=== PATIENT | female | born 1990 | race Caucasian/White ===

== ENCOUNTER 2018-06-15 22:08 | Emergency (ER) | payer OTHER ==
--- NOTE | 2018-06-15 22:55 | ED Physician Documentation ---
PD HPI FEMALE - Stated complaint Stated Complaint: FEMALE /6WK OB - Chief complaint Chief Complaint: Abd Pain - History obtained from History obtained from: Patient - History of Present Illness Timing - onset: How many days ago (4) Timing - details: Gradual onset, Intermittant Pain level max: 2 Associated symptoms: Pelvic pain, Vaginal bleeding. 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 vaginal bleeding x 4 days which has decreased but still vagina, spotting Review of Systems Constitutional: reports: Reviewed and negative GI: reports: Reviewed and negative : reports: Vaginal bleeding, Now EGA (6 weeks). denies: Dysuria, Frequency PD PAST MEDICAL HISTORY - Past Medical History Past Medical History: No - Past Surgical History Past Surgical History: No - Present Medications Home Medications: Ambulatory Orders Medication Instructions Recorded Confirmed Pnv95/Ferrous Fumarate/FA 1 tab PO 06/15/18 [ Tablet] - Allergies Allergies/Adverse Reactions: Allergies Allergy/AdvReac Type Severity Reaction Status Date / Time No Known Drug Allergies Allergy Verified 06/15/18 22:16 - Living Situation Living Situation: reports: With spouse/s.o. Living Arrangement: reports: At home PD ED PE NORMAL - Vitals Vital signs reviewed: Yes - General General: Alert and oriented X 3, No acute distress, Well developed/nourished - Cardiac Cardiac: RRR, No murmur - Respiratory Respiratory: No respiratory distress, Clear bilaterally - Abdomen Abdomen: Soft, Non tender, Non distended - Back Back: No CVA TTP Results - Vitals Vitals: Vital Signs - 24 hr 06/15/18 06/16/18 22:11 02:03 Temperature 36.2 C L Heart Rate 91 83 Respiratory 18 14 Rate Blood Pressure 129/62 112/75 O2 Saturation 99 100 Oxygen O2 Source Room air - Labs Labs: Laboratory Tests 06/15/18 23:10 HCG, Quant 42971.00 - Rads (name of study) pelvic US Radiology: Prelim report reviewed, See rad report PD MEDICAL DECISION MAKING - ED course Complexity details: reviewed results, re-evaluated patient, considered differential, d/w patient, d/w family Departure - Departure Disposition: 01 Home, Self Care Clinical Impression: Threatened miscarriage Condition: Good Instructions: ED Miscarriage Poss Follow-Up: [facility] [Provider Group] Discharge Date/Time: 06/16/18 02:56
--- NOTE | 2018-06-16 01:57 | Ultrasound Report ---
Reason: , vaginal bleeding/cramping Procedure Date: 06/16/2018 Accession Number: [id number] / [id number] Procedure: US - OB Transvaginal CPT Code: FULL RESULT: EXAM: FIRST TRIMESTER OBSTETRIC ULTRASOUND (Less than 11 weeks) EXAM DATE: 06/16/2018 01:24 AM. CLINICAL HISTORY: , vaginal bleeding/cramping. LMP: 04/29/2018, 6 weeks 5 days. COMPARISONS: None. TECHNIQUE: Transabdominal and transvaginal ultrasound examination with static image documentation. FINDINGS: Gestational Sac: An intrauterine fluid-filled sac contains both an embryo and yolk sac. Adjacent 5 x 10 x 7 mm pocket of fluid is possibly a smaller anembryonic gestational sac or perigestational bleed. Embryo: CRL (crown-rump length) measures 6 mm corresponding to an estimated gestational age of 6 weeks 3 days. Heart Rate: 137 beats per minute. Placenta: Not visible at this gestational age. Amniotic fluid: Not accurately assessed at this gestational age. Uterus: Unremarkable anteverted appearance. Cervix: Closed. Right Ovary: Volume 11 cc. Normal echotexture and blood flow with note of a small corpus luteum. Left Ovary: Volume 9 cc. Normal echotexture and blood flow. Free Fluid: None. Other: None. IMPRESSION: 1. Live intrauterine at 6 weeks 3 days by LMP, today's exam is concordant -- for an estimated delivery date of 02/03/2019. 2. Adjacent small pocket of fluid is possibly a smaller anembryonic gestational sac or perigestational bleed. [facility]
--- NOTE | 2018-06-16 01:57 | Ultrasound Report ---
Reason: , vaginal bleeding/cramping Procedure Date: 06/16/2018 Accession Number: [id number] / [id number] Procedure: US - OB First Trimester CPT Code: FULL RESULT: EXAM: FIRST TRIMESTER OBSTETRIC ULTRASOUND (Less than 11 weeks) EXAM DATE: 06/16/2018 01:24 AM. CLINICAL HISTORY: , vaginal bleeding/cramping. LMP: 04/29/2018, 6 weeks 5 days. COMPARISONS: None. TECHNIQUE: Transabdominal and transvaginal ultrasound examination with static image documentation. FINDINGS: Gestational Sac: An intrauterine fluid-filled sac contains both an embryo and yolk sac. Adjacent 5 x 10 x 7 mm pocket of fluid is possibly a smaller anembryonic gestational sac or perigestational bleed. Embryo: CRL (crown-rump length) measures 6 mm corresponding to an estimated gestational age of 6 weeks 3 days. Heart Rate: 137 beats per minute. Placenta: Not visible at this gestational age. Amniotic fluid: Not accurately assessed at this gestational age. Uterus: Unremarkable anteverted appearance. Cervix: Closed. Right Ovary: Volume 11 cc. Normal echotexture and blood flow with note of a small corpus luteum. Left Ovary: Volume 9 cc. Normal echotexture and blood flow. Free Fluid: None. Other: None. IMPRESSION: 1. Live intrauterine at 6 weeks 3 days by LMP, today's exam is concordant -- for an estimated delivery date of 02/03/2019. 2. Adjacent small pocket of fluid is possibly a smaller anembryonic gestational sac or perigestational bleed. [facility]
[2018-06-16 02:05] VITALS: BP 112/75
== END 2018-06-16 02:56 | disposition home or self-care (01) ==
LOC: ED 22:08
DX: O20.0 Threatened abortion (principal); Z3A.01 Less than 8 weeks gestation of pregnancy
CPT/HCPCS: 36415; 76801; 76817; 84702; 99283

== ENCOUNTER 2019-08-31 11:44 | Emergency (ER) | payer OTHER ==
[2019-08-31 11:55] VITALS: BP 119/67
[2019-08-31 12:18] LABS: BASOPHILS % (AUTO) 0.1 %; EOSINOPHILS # (AUTO) 0.1 10^3/uL (0.0-0.7); EOSINOPHILS % (AUTO) 1.5 %; LYMPHOCYTES # (AUTO) 1.5 10^3/uL (1.5-3.5); MEAN CORPUSCULAR HEMOGLOBIN 29.3 pg (27.0-31.0); MEAN CORPUSCULAR HGB CONC 33.9 g/dL (32.0-36.0); MEAN CORPUSCULAR VOLUME 86.3 fL (81.0-99.0); MEAN PLATELET VOLUME 10.8 fL (7.9-10.8); MONOCYTES # (AUTO) 0.4 10^3/uL (0.0-1.0); MONOCYTES % (AUTO) 5.3 %; NEUTROPHILS % (AUTO) 73.7 %; PLT - PLATELET COUNT 195 10^3/uL (130-450); RED CELL DISTRIBUTION WIDTH 13.6 % (12.0-15.0); WHITE BLOOD COUNT 8.1 x10^3/uL (4.8-10.8)
--- NOTE | 2019-08-31 12:30 | ED Physician Documentation ---
PD HPI FEMALE - Stated complaint Stated Complaint: FEMALE - Chief complaint Chief Complaint: Abd Pain - History obtained from History obtained from: Patient - History of Present Illness Timing - onset: Today Timing - duration: Hours (3) Timing - details: Abrupt onset Pain level max: 0 Pain level max: 0 Associated symptoms: Vaginal bleeding. 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: G (3), P (2) Recently seen: Not recently seen Review of Systems Ten Systems: 10 systems reviewed and negative Constitutional: denies: Fever, Chills Nose: denies: Rhinorrhea / runny nose, Congestion Cardiac: denies: Chest pain / pressure Respiratory: denies: Cough GI: denies: Abdominal Pain, Vomiting, Diarrhea : denies: Dysuria, Frequency, Hesitancy Skin: denies: Rash Musculoskeletal: denies: Neck pain, Back pain Neurologic: denies: Headache PD PAST MEDICAL HISTORY - Past Medical History Past Medical History: No - Past Surgical History Past Surgical History: No - Present Medications Home Medications: Ambulatory Orders Medication Instructions Recorded Confirmed Pnv No.95/Ferrous Fum/Folic AC 1 tab PO 06/15/18 [ Tablet] Cephalexin [Keflex] 500 mg PO Q6H #20 capsule 08/31/19 - Allergies Allergies/Adverse Reactions: Allergies Allergy/AdvReac Type Severity Reaction Status Date / Time No Known Drug Allergies Allergy Verified 08/31/19 11:54 - Social History Does the pt have substance abuse?: No - Family History Family history: reports: Non contributory - Immunizations Immunizations are current?: Yes PD ED PE NORMAL - Vitals Vital signs reviewed: Yes - General General: Alert and oriented X 3, No acute distress, Well developed/nourished - HEENT HEENT: Ears normal, Moist mucous membranes, Pharynx benign - Neck Neck: Supple, no meningeal sign - Cardiac Cardiac: RRR, Strong equal pulses - Respiratory Respiratory: No respiratory distress, Clear bilaterally - Abdomen Abdomen: Soft, Non tender, Non distended - Female Female : Pt declined - Back Back: No spinal TTP - Derm Derm: Warm and dry, No rash - Neuro Neuro: Alert and oriented X 3 - Psych Psych: Normal mood, Normal affect Results - Vitals Vitals: Vital Signs - 24 hr 08/31/19 11:52 Temperature 36.7 C Heart Rate 94 Respiratory 18 Rate Blood Pressure 119/67 O2 Saturation 98 Oxygen O2 Source Room air - Labs Labs: Laboratory Tests 08/31/19 08/31/19 08/31/19 12:07 12:07 12:07 WBC 8.1 RBC 4.10 L Hgb 12.0 Hct 35.4 L MCV 86.3 MCH 29.3 MCHC 33.9 RDW 13.6 Plt Count 195 MPV 10.8 Neut # (Auto) 6.0 Lymph # (Auto) 1.5 [place] # (Auto) 0.4 Eos # (Auto) 0.1 Baso # (Auto) 0.0 Absolute Nucleated RBC 0.00 Nucleated RBC % 0.0 Sodium 134 L Potassium 3.5 Chloride 104 Carbon Dioxide 23 Anion Gap 7.0 BUN 10 Creatinine 0.4 Estimated GFR (MDRD) 193 Glucose 158 H Calcium 9.1 Total Bilirubin 0.4 AST 16 ALT 20 Alkaline Phosphatase 44 Total Protein 6.9 Albumin 3.8 Globulin 3.1 Albumin/Globulin Ratio 1.2 Lipase 27 HCG, Quant 00087.00 Urine Color Urine Clarity Urine pH Ur Specific [place] Urine Protein Urine Glucose (UA) Urine Ketones Urine Occult Blood Urine Nitrite Urine Bilirubin Urine Urobilinogen Ur Leukocyte Esterase Urine RBC Urine WBC Ur Squamous Epith Cells Urine Bacteria Ur Microscopic Review Urine Culture Comments Blood Type 08/31/19 08/31/19 12:07 12:32 WBC RBC Hgb Hct MCV MCH MCHC RDW Plt Count MPV Neut # (Auto) Lymph # (Auto) [place] # (Auto) Eos # (Auto) Baso # (Auto) Absolute Nucleated RBC Nucleated RBC % Sodium Potassium Chloride Carbon Dioxide Anion Gap BUN Creatinine Estimated GFR (MDRD) Glucose Calcium Total Bilirubin AST ALT Alkaline Phosphatase Total Protein Albumin Globulin Albumin/Globulin Ratio Lipase HCG, Quant Urine Color RED/BLOODY Urine Clarity HAZY Urine pH 7.0 Ur Specific [place] 1.020 Urine Protein 100 H Urine Glucose (UA) NEGATIVE Urine Ketones NEGATIVE Urine Occult Blood LARGE H Urine Nitrite NEGATIVE Urine Bilirubin NEGATIVE Urine Urobilinogen 0.2 (NORMAL) Ur Leukocyte Esterase NEGATIVE Urine RBC TNTC H Urine WBC 0-3 Ur Squamous Epith Cells RARE Squamous Urine Bacteria Few Ur Microscopic Review INDICATED Urine Culture Comments NOT INDICATED Blood Type O POSITIVE PD MEDICAL DECISION MAKING - ED course Complexity details: reviewed results, re-evaluated patient, considered differential, d/w patient ED course: 28-year-old female presents to the emergency department with vaginal bleeding. Bedside ultrasound reveals a intrauterine with a heart rate of 156 bpm. Good movement. Patient appears to have bacteriuria, will treat this. She is well-appearing, nontoxic. Afebrile. No other acute lab findings. We will have her follow-up with her OB for further care. Patient counseled regarding signs and symptoms for which I believe and urgent re-evaluation would be necessary. Patient with good understanding of and agreement to plan and is comfortable going home at this time This document was made in part using voice recognition software. While efforts are made to proofread this document, sound alike and grammatical errors may occur. Departure - Departure Disposition: Home, Self Care Clinical Impression: Vaginal bleeding affecting early , Threatened miscarriage Urinary tract infection Qualifiers: Urinary tract infection type: acute cystitis Hematuria presence: with hematuria Qualified Code(s): N30.01 - Acute cystitis with hematuria Condition: Good Instructions: ED Miscarriage Poss, ED UTI Cystitis Female Follow-Up: your,doctor in 1 week [Other] Prescriptions: Cephalexin [Keflex] 500 mg PO Q6H #20 capsule Comments: Take all antibiotics until gone. Return if you worsen. Follow up with your doctor in 3 days for a recheck.
[2019-08-31 12:34] LABS: ALBUMIN 3.8 g/dL (3.2-5.5); ALBUMIN/GLOBULIN RATIO 1.2 (1.0-2.2); BILIRUBIN,TOTAL 0.4 mg/dL (0.2-1.0); CALCIUM 9.1 mg/dL (8.5-10.3); CREATININE 0.4 mg/dL (0.4-1.0); TOTAL PROTEIN 6.9 g/dL (6.7-8.2)
[2019-08-31 13:01] LABS: BILIRUBIN,URINE NEGATIVE (NEGATIVE); GLUCOSE, URINE (UA) NEGATIVE (NEGATIVE); KETONES,URINE (UA) NEGATIVE (NEGATIVE); LEUKOCYTE ESTERASE, URINE NEGATIVE (NEGATIVE); NITRITE,URINE NEGATIVE (NEGATIVE); OCCULT BLOOD,URINE LARGE (NEGATIVE); PROTEIN,URINE 100 mg/dL (NEGATIVE); UROBILINOGEN,URINE 0.2 (NORMAL) E.U./dL (NORMAL)
[2019-08-31 13:05] LABS: CLARITY,URINE HAZY (CLEAR)
[2019-08-31 13:08] LABS: BACTERIA,URINE Few /HPF (None Seen); RBC,URINE TNTC /HPF (0-5); SQUAMOUS EPITHELIAL CELL,UR RARE Squamous (<= Few)
== END 2019-08-31 13:36 | disposition home or self-care (01) ==
LOC: ED 11:44
DX: O20.0 Threatened abortion (principal); Z3A.12 12 weeks gestation of pregnancy; O99.89 Other specified diseases and conditions complicating pregnancy, childbirth and the puerperium; N30.01 Acute cystitis with hematuria
CPT/HCPCS: 36415; 80053; 81001; 81003; 83690; 84702; 85025; 86900; 86901; 87086; 99283; 99284

== ENCOUNTER 2019-09-11 23:16 | Emergency (ER) | payer OTHER ==
--- NOTE | 2019-09-12 00:04 | ED Physician Documentation ---
PD HPI FEMALE - Stated complaint Stated Complaint: FEM /13WK PREG - Chief complaint Chief Complaint: Abd Pain - History obtained from History obtained from: Patient - History of Present Illness Timing - onset: How many days ago (11) Timing - duration: Days Timing - details: Abrupt onset, Intermittant Pain level max: 0 Pain level max: 0 Associated symptoms: Back pain. 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 Patient is 13 weeks . Patient was treated and released from this emergency department on August 30 for same. Patient says she has been having vaginal bleeding every day since then. 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 Tonight, she noticed the blood was darker than usual. She called the nurse helpline and was advised to come to the emergency department. Review of Systems Constitutional: reports: Reviewed and negative Cardiac: reports: Reviewed and negative Respiratory: reports: Reviewed and negative GI: reports: Reviewed and negative : reports: Vaginal bleeding, Now EGA (13 weeks). denies: Dysuria Musculoskeletal: reports: Back pain PD PAST MEDICAL HISTORY - Past Medical History Past Medical History: Yes Cardiovascular: None Respiratory: None Neuro: None Endocrine/Autoimmune: None GI: None NOZZLE CEMENT SPRAYER HELPER: None : None HEENT: None Psych: None Musculoskeletal: None Derm: None Other Past Medical History: GESTATIONAL DIABETES (2/3rd ....) - Past Surgical History Past Surgical History: Yes General: Appendectomy HEENT: Tonsil/Adenoidectomy - Present Medications Home Medications: Ambulatory Orders Medication Instructions Recorded Confirmed Pnv No.95/Ferrous Fum/Folic AC 1 tab PO 06/15/18 [ Tablet] Cephalexin [Keflex] 500 mg PO Q6H #20 capsule 08/31/19 - Allergies Allergies/Adverse Reactions: Allergies Allergy/AdvReac Type Severity Reaction Status Date / Time No Known Drug Allergies Allergy Verified 08/31/19 11:54 - Social History Does the pt smoke?: No Smoking Status: Never smoker Does the pt drink ETOH?: No Does the pt have substance abuse?: No - Immunizations Immunizations are current?: Yes - POLST Patient has POLST: No PD ED PE NORMAL - Vitals Vital signs reviewed: Yes - General General: Alert and oriented X 3, No acute distress, Well developed/nourished - HEENT HEENT: Moist mucous membranes - Cardiac Cardiac: RRR, No murmur - Respiratory Respiratory: No respiratory distress, Clear bilaterally - Abdomen Abdomen: Normal bowel sounds, Soft, Non tender, Non distended - Back Back: No CVA TTP Results - Vitals Vitals: Vital Signs - 24 hr 09/12/19 09/12/19 06:04 06:28 Heart Rate 73 Respiratory 16 16 Rate O2 Saturation 97 Oxygen O2 Source Room air - Labs Labs: Laboratory Tests 09/12/19 09/12/19 09/12/19 00:38 00:50 00:50 WBC 10.3 RBC 4.05 L Hgb 11.7 L Hct 35.5 L MCV 87.7 MCH 28.9 MCHC 33.0 RDW 13.8 Plt Count 232 MPV 11.1 H Neut # (Auto) 7.0 H Lymph # (Auto) 2.4 [place] # (Auto) 0.6 Eos # (Auto) 0.2 Baso # (Auto) 0.0 Absolute Nucleated RBC 0.00 Nucleated RBC % 0.0 Sodium 136 Potassium 3.6 Chloride 103 Carbon Dioxide 24 Anion Gap 9.0 BUN 10 Creatinine 0.4 Estimated GFR (MDRD) 191 Glucose 105 H Calcium 9.5 Total Bilirubin < 0.2 L AST 17 ALT 20 Alkaline Phosphatase 53 Total Protein 7.8 Albumin 3.9 Globulin 3.9 Albumin/Globulin Ratio 1.0 Lipase 28 HCG, Quant Urine Color YELLOW Urine Clarity CLEAR Urine pH 6.0 Ur Specific [place] 1.015 Urine Protein NEGATIVE Urine Glucose (UA) NEGATIVE Urine Ketones NEGATIVE Urine Occult Blood MODERATE H Urine Nitrite NEGATIVE Urine Bilirubin NEGATIVE Urine Urobilinogen 0.2 (NORMAL) Ur Leukocyte Esterase NEGATIVE Urine RBC 0-5 Urine WBC 0-3 Ur Squamous Epith Cells FEW Squamous Urine Bacteria Rare Ur Microscopic Review INDICATED 09/12/19 00:50 WBC RBC Hgb Hct MCV MCH MCHC RDW Plt Count MPV Neut # (Auto) Lymph # (Auto) [place] # (Auto) Eos # (Auto) Baso # (Auto) Absolute Nucleated RBC Nucleated RBC % Sodium Potassium Chloride Carbon Dioxide Anion Gap BUN Creatinine Estimated GFR (MDRD) Glucose Calcium Total Bilirubin AST ALT Alkaline Phosphatase Total Protein Albumin Globulin Albumin/Globulin Ratio Lipase HCG, Quant 65965.00 Urine Color Urine Clarity Urine pH Ur Specific [place] Urine Protein Urine Glucose (UA) Urine Ketones Urine Occult Blood Urine Nitrite Urine Bilirubin Urine Urobilinogen Ur Leukocyte Esterase Urine RBC Urine WBC Ur Squamous Epith Cells Urine Bacteria Ur Microscopic Review - Rads (name of study) pelvic US Radiology: Prelim report reviewed, See rad report PD MEDICAL DECISION MAKING - ED course Complexity details: reviewed results, re-evaluated patient, considered differential, d/w patient Departure - Departure Disposition: 01 Home, Self Care Clinical Impression: Threatened miscarriage Condition: Good Instructions: ED Miscarriage Poss Follow-Up: [facility] [Provider Group] Comments: EXAM: [id number] US/[id number] ([id number]) Reason: , vaginal bleeding Procedure Date: 09/12/2019 Accession Number: [id number] / [id number] Procedure: US - OB First Trimester CPT Code: Final Report FULL RESULT: EXAM: OBSTETRICAL ULTRASOUND, 11-14 weeks EXAM DATE: 09/12/2019 02:34 AM. CLINICAL HISTORY: , vaginal bleeding. LMP: 05/31/2019. COMPARISON: None. TECHNIQUE: Transabdominal and endovaginal ultrasound examination with static image documentation. DATING: EGA 14 weeks 6 days with JASON 03/06/2020 based on LMP. EGA 13 weeks 6 days with JASON 03/13/2020 based on the current ultrasound. ASSESSMENT: Single viable intrauterine fetus. Cardiac activity: 163 beats per minute. BPD 2.3 cm, 13 weeks 6 days HC 9.1 cm, 14 weeks 1 day AC 6.8 cm, 13 weeks 3 days FL 1.3 cm, 13 weeks 5 days US EGA 13 weeks 6 days Placenta: Posterior location. Amniotic fluid: Subjectively normal. Other: Complex fluid collection seen inferiorly measuring 5.9 x 4.3 x 3.6 cm with some internal echoes. This could represent hemorrhage or an empty second gestational sac. Unfused amnion is seen. Possible small hemorrhage right lateral to the gestational sac measuring 0.7 x 1.7 x 0.7 cm. ANATOMY: Profile/nasal bone, choroid plexus, anterior abdominal wall and cord insertion, urinary bladder, bilateral upper extremities, and bilateral lower extremities are unremarkable. MATERNAL STRUCTURES: Uterus: Anteverted. Unremarkable. Cervix: Long and closed, measuring 4.6 cm on transvaginal exam. Right Ovary/Adnexa: Unremarkable. The ovary measures 3.7 x 1.7 x 2.5 cm. Left Ovary/Adnexa: Unremarkable. The ovary measures 2.2 x 2.1 x 3.6 cm. Free Fluid: None. Other: None. IMPRESSION: 1. Single viable intrauterine fetus with gestational age 14 weeks 6 days based on LMP. 2. size is appropriate for assigned dating. 3. Incomplete first trimester early anatomy. No anatomic abnormalities are seen at this time. 4. Somewhat complex inferior fluid collection measuring 5.9 x 4.3 x 3.6 cm which could represent hemorrhage or empty second gestational sac. 5. Possible additional small focus of hemorrhage right lateral to the gestational sac measuring 0.7 x 1.7 x 0.7 cm. 6. Unfused amnion is noted. Note: Detailed anatomic survey at 18-22 weeks is recommended for all fetuses evaluated prior to 18 weeks, as some structural abnormalities may be inapparent at earlier gestational ages. [facility] Dietary Aid: Reading Radiologist: Robert Skelton MD Releasing Radiologist: Robert Skelton MD Released Date Time: 09/12/19331 Report 1 cc: Russell Zavala MD Principal Doctor Naturopathic Name: Robert Skelton Provider ID: [id number] Discharge Date/Time: 09/12/19 06:29
[2019-09-12 00:42] LABS: BILIRUBIN,URINE NEGATIVE (NEGATIVE); GLUCOSE, URINE (UA) NEGATIVE (NEGATIVE); KETONES,URINE (UA) NEGATIVE (NEGATIVE); LEUKOCYTE ESTERASE, URINE NEGATIVE (NEGATIVE); NITRITE,URINE NEGATIVE (NEGATIVE); OCCULT BLOOD,URINE MODERATE (NEGATIVE); PROTEIN,URINE NEGATIVE (NEGATIVE); UROBILINOGEN,URINE 0.2 (NORMAL) E.U./dL (NORMAL)
[2019-09-12 00:53] LABS: CLARITY,URINE CLEAR (CLEAR)
[2019-09-12 00:54] LABS: BACTERIA,URINE Rare /HPF (None Seen); RBC,URINE 0-5 /HPF (0-5); SQUAMOUS EPITHELIAL CELL,UR FEW Squamous (<= Few)
[2019-09-12 01:01] LABS: BASOPHILS % (AUTO) 0.3 %; EOSINOPHILS # (AUTO) 0.2 10^3/uL (0.0-0.7); EOSINOPHILS % (AUTO) 1.8 %; HGB - HEMOGLOBIN 11.7 g/dL (12.0-16.0); LYMPHOCYTES # (AUTO) 2.4 10^3/uL (1.5-3.5); LYMPHOCYTES % (AUTO) 23.1 %; MEAN CORPUSCULAR HEMOGLOBIN 28.9 pg (27.0-31.0); MEAN CORPUSCULAR VOLUME 87.7 fL (81.0-99.0); MEAN PLATELET VOLUME 11.1 fL (7.9-10.8); MONOCYTES # (AUTO) 0.6 10^3/uL (0.0-1.0); MONOCYTES % (AUTO) 5.9 %; NEUTROPHILS % (AUTO) 68.4 %; PLT - PLATELET COUNT 232 10^3/uL (130-450); RED BLOOD COUNT 4.05 10^6/uL (4.20-5.40); RED CELL DISTRIBUTION WIDTH 13.8 % (12.0-15.0); WHITE BLOOD COUNT 10.3 x10^3/uL (4.8-10.8)
[2019-09-12 01:17] LABS: ALBUMIN 3.9 g/dL (3.2-5.5); ALKALINE PHOSPHATASE 53 IU/L (42-121); ALT ALANINE AMINOTRANSFERASE 20 IU/L (10-60); AST ASPARTATE AMINOTRANSFERASE 17 IU/L (10-42); BILIRUBIN,TOTAL < 0.2 mg/dL (0.2-1.0); BUN - BLOOD UREA NITROGEN 10 mg/dL (6-20); CALCIUM 9.5 mg/dL (8.5-10.3); CARBON DIOXIDE - CO2 24 mmol/L (21-32); CHLORIDE 103 mmol/L (101-111); CREATININE 0.4 mg/dL (0.4-1.0); GLUCOSE 105 mg/dL (70-100); LIPASE 28 U/L (22-51); SODIUM 136 mmol/L (135-145); TOTAL PROTEIN 7.8 g/dL (6.7-8.2)
[2019-09-12 02:47] VITALS: BP 115/78
--- NOTE | 2019-09-12 03:42 | Ultrasound Report ---
Reason: , vaginal bleeding Procedure Date: 09/12/2019 Accession Number: [id number] / [id number] Procedure: US - OB First Trimester CPT Code: Final Report FULL RESULT: EXAM: OBSTETRICAL ULTRASOUND, 11-14 weeks EXAM DATE: 09/12/2019 02:34 AM. CLINICAL HISTORY: , vaginal bleeding. LMP: 05/31/2019. COMPARISON: None. TECHNIQUE: Transabdominal and endovaginal ultrasound examination with static image documentation. DATING: EGA 14 weeks 6 days with JASON 03/06/2020 based on LMP. EGA 13 weeks 6 days with JASON 03/13/2020 based on the current ultrasound. ASSESSMENT: Single viable intrauterine fetus. Cardiac activity: 163 beats per minute. BPD 2.3 cm, 13 weeks 6 days HC 9.1 cm, 14 weeks 1 day AC 6.8 cm, 13 weeks 3 days FL 1.3 cm, 13 weeks 5 days US EGA 13 weeks 6 days Placenta: Posterior location. Amniotic fluid: Subjectively normal. Other: Complex fluid collection seen inferiorly measuring 5.9 x 4.3 x 3.6 cm with some internal echoes. This could represent hemorrhage or an empty second gestational sac. Unfused amnion is seen. Possible small hemorrhage right lateral to the gestational sac measuring 0.7 x 1.7 x 0.7 cm. ANATOMY: Profile/nasal bone, choroid plexus, anterior abdominal wall and cord insertion, urinary bladder, bilateral upper extremities, and bilateral lower extremities are unremarkable. MATERNAL STRUCTURES: Uterus: Anteverted. Unremarkable. Cervix: Long and closed, measuring 4.6 cm on transvaginal exam. Right Ovary/Adnexa: Unremarkable. The ovary measures 3.7 x 1.7 x 2.5 cm. Left Ovary/Adnexa: Unremarkable. The ovary measures 2.2 x 2.1 x 3.6 cm. Free Fluid: None. Other: None. IMPRESSION: 1. Single viable intrauterine fetus with gestational age 14 weeks 6 days based on LMP. 2. size is appropriate for assigned dating. 3. Incomplete first trimester early anatomy. No anatomic abnormalities are seen at this time. 4. Somewhat complex inferior fluid collection measuring 5.9 x 4.3 x 3.6 cm which could represent hemorrhage or empty second gestational sac. 5. Possible additional small focus of hemorrhage right lateral to the gestational sac measuring 0.7 x 1.7 x 0.7 cm. 6. Unfused amnion is noted. Note: Detailed anatomic survey at 18-22 weeks is recommended for all fetuses evaluated prior to 18 weeks, as some structural abnormalities may be inapparent at earlier gestational ages. [facility]
== END 2019-09-12 06:29 | disposition home or self-care (01) ==
LOC: ED 23:16
DX: O20.0 Threatened abortion (principal); Z3A.13 13 weeks gestation of pregnancy
CPT/HCPCS: 36415; 76801; 76817; 80053; 81001; 81003; 83690; 84702; 84703; 85025; 86850; 86900; 86901; 99284

== ENCOUNTER 2020-10-22 13:40 | Outpatient (CLI) | payer OTHER | END 2020-10-22 13:41 | disposition home or self-care (01) | LOC: NS 13:40 | PROVIDERS: ATTEND Registered Nurse | DX: Z71.3 Dietary counseling and surveillance (principal); E66.01 Morbid (severe) obesity due to excess calories; Z68.41 Body mass index [BMI] 40.0-44.9, adult | CPT/HCPCS: 97802 ==